=== PATIENT | female | born 1970 | race Hispanic/Latino ===

== ENCOUNTER 2017-04-07 17:40 | Observation (INO) | payer BC ==
[2017-04-07 18:12] LABS: Hemoglobin 9.3 g/dL (12.0-16.0); Mean Corpuscular HGB CONC 30.4 g/dL (32.0-36.0); Mean Corpuscular Hemoglobin 19.7 pg (27.0-31.0); Mean Corpuscular Volume 64.6 fl (81.0-99.0); Mean Platelet Volume 8.5 fL (7.4-10.4); Platelet Count 206 thou/uL (130-400); RBC Distribution Width 17.1 % (11.5-14.5); Red Blood Cell (RBC) Count 4.71 mill/uL (4.20-5.40); White Blood Cell (WBC) Count 8.5 thou/uL (4.8-10.8)
[2017-04-07 18:31] LABS: #Eosinphils 0.1 thou/uL (0.0-0.7); #Lymphocytes 2.1 thou/uL (1.20-3.40); #Monocytes 0.6 thou/uL (0.11-0.59); #Neutrophils 5.7 thou/uL (1.40-6.50); %Basophils 0.5 % (0.0-1.0); %Eosinophils 1.2 % (0.0-10.0); %Lymphocytes 24.4 % (21.0-51.0); %Neutrophils 66.9 % (42.0-75.0); MDiff Complete? YES; Microcytosis MODERATE=15-30 cells (100X) (0-5/hpf); Ovalocytes SLIGHT = 2-5 cells (100X) (0-1/hpf); PLT Morphology Comment Appears Adequate; Reflex for Review?? YES
[2017-04-07 18:33] LABS: ALT (SGPT) 17 U/L (8-55); AST (SGOT) 14 U/L (5-34); Albumin 4.2 g/dL (3.5-5.0); Alkaline Phosphatase 121 U/L (40-150); Anion Gap 11 mmol/L (10-20); BUN (Urea Nitrogen) 11 mg/dL (7.0-18.7); Bilirubin, Total 0.3 mg/dL (0.2-1.2); Calc. Creatinine Clearance 0 mL/min (70-130); Calcium 8.6 mg/dL (7.8-10.44); Carbon Dioxide 25 mmol/L (22-29); Chloride 106 mmol/L (98-107); Estimated GFR-MDRD Greater than 90; Globulin 3.4 g/dL (2.4-3.5); Glucose 110 mg/dL (70-105); Potassium 3.7 mmol/L (3.5-5.1); Protein, Total 7.6 g/dL (6.0-8.3); Sodium 138 mmol/L (136-145)
[2017-04-07 18:39] LABS: CKMB 2.2 ng/mL (0-6.6); Troponin I Less than 0.010 ng/mL (< 0.028)
--- NOTE | 2017-04-07 19:09 | RAD ---
CHEST PA AND LATERAL: 04/07/17 HISTORY: 46-year-old female with cough and chest pain with inspiration with some left sided numbness and tingl ing. FINDINGS: Heart size is normal. The lungs are clear. IMPRESSION: No acute intrathoracic disease. No evidence for pneumonia. POS: [facility]
--- NOTE | 2017-04-07 20:17 | CT ---
HEAD CT WITHOUT CONTRAST 04/07/17 COMPARISON: None. HISTORY: Left sided facial numbness, extremity numbness. TECHNIQUE: Serial axial CT imaging obtained at 5 mm intervals from vertex through skull base. FINDINGS: The imaged paranasal sinuses and mastoid air cells are well aerated. No displaced calvarial fracture is seen. No intracranial hemorrhage, midline shift, mass effect or ventricular enlargement. IMPRESSION: No acute findings. POS: [facility]
[2017-04-07 21:34] LABS: Troponin I 0.011 ng/mL (< 0.028)
[2017-04-07 22:03] VITALS: BMI 32.7
[2017-04-07] MEDS ORDERED: Ondansetron HCl/PF 4 MG/2 ML Vial IVP PRN (22:15)
[2017-04-07] MEDS ORDERED: Acetaminophen 325 MG TAB PO PRN ×2 (22:15→23:08)
[2017-04-07] MEDS ORDERED: Ondansetron ODT 4 MG TAB SL PRN (22:15)
[2017-04-07] MEDS ORDERED: Ondansetron ODT 4 MG TAB PO PRN (23:08)
[2017-04-07] MEDS ORDERED: Cyclobenzaprine 10 MG TAB PO PRN (23:08)
[2017-04-07 23:29] LABS: Hemoglobin A1c 5.2 % (4.0-6.0)
[2017-04-07 23:31] LABS: Magnesium 2.1 mg/dL (1.6-2.6); Phosphorus 3.6 mg/dL (2.3-4.7)
[2017-04-07 23:46] LABS: Ferritin 2.22 ng/mL (10-291); Thyroid Stimulating Hormone 0.9265 uIU/mL (0.35-4.94)
[2017-04-08 01:05] LABS: Troponin I Less than 0.010 ng/mL (< 0.028)
--- NOTE | 2017-04-08 02:44 | HP-2 ---
CODE STATUS: FULL. PRIMARY CARE PHYSICIAN: Parish quiles. ATTENDING PHYSICIAN: Dr. Sheri Davies. RESIDENT: Dr. Dontrell Parr. CHIEF COMPLAINT: Left-sided weakness. HISTORY OF PRESENT ILLNESS: This is a 46-year-old female that presents with a 1 -day history of chest pain and left-sided numbness that started last night at work. She works at a [employer]. The pain has been constant and has not improved. She also states that she had some nausea and feeling like she was going to fall. She also states she has had a headache. She does not admit to any medication use, but her daughter does state she is very anxious and does not see a doctor regularly. She states she takes many diet pills and has a lot of energy drinks on a daily basis. No other complaints at this time. In the ER , she was given aspirin 324 mg. PAST MEDICAL HISTORY: Significant for anxiety and depression. PAST SURGICAL HISTORY: C-sections x2, appendectomy. ALLERGIES: No known drug allergies. MEDICATIONS: None. FAMILY HISTORY: Noncontributory. SOCIAL HISTORY: No tobacco, alcohol, or drug use. REVIEW OF SYSTEMS: General: Denies fevers, chills, weight changes, night sweats, fatigue. Eyes: Denies vision changes or eye pain. ENT: Denies nasal congestion, rhinorrhea, or sore throat. Respiratory: No cough, congestion, shortness of breath. Cardiovascular: No chest pain, palpitations, or edema. GI: She does admit to nausea. She denies any vomiting, diarrhea, or constipation. Genitourinary: Denies incontinence or dysuria. She does state that she has had some dysfunctional uterine bleeding. Skin: No rashes or lesions. Musculoskeletal: No pain, tenderness, stiffness, swelling, arthritis at any joints. Neurologic: No weakness. She does have numbness, dizziness, headaches, and some paresthesias. Psychiatric: She admits to anxiety. No depression. PHYSICAL EXAMINATION: VITAL SIGNS: Blood pressure is 102/59, pulse 72, respiration rate 16, temperature max 98.4, pulse ox 100% on room air, current weight is 75 kilos. GENERAL: Alert and oriented x4, appropriate, interactive. EYES: PERRLA. Conjunctivae within normal limits. ENT: Tympanic membranes pearly zepeda without bulging or erythema. Nose: Mucosa and oropharynx within normal limits. NECK: Supple, no lymphadenopathy, no thyromegaly. CARDIOVASCULAR: Regular rate and rhythm. No murmurs. Radial and pedal pulses equal bilaterally. RESPIRATORY: Normal effort, no retractions, clear lungs to auscultation bilaterally. SKIN: Warm and dry. ABDOMEN: Soft, nontender to palpation. Bowel sounds present x4. No mass or distention. We did have a rectal exam, some external hemorrhoids are noted. A tight rectal tone with a guaiac pending. No masses or strictures were felt. EXTREMITIES: No clubbing, cyanosis, or edema. MUSCULOSKELETAL: Structure and tone, muscle strength, range of motion within normal limits. NEUROLOGIC: No focal neurologic deficits. Sensation within normal limits. Cranial nerves II-XII grossly intact. GCS was 15. Psychiatric: Appropriate. LABORATORY DATA: We have white blood cell count 8.5, platelet count 206, hemoglobin 9.3, hematocrit 30.4, MCV was 64.6. Sodium 138, potassium 3.7, chloride 106, bicarbonate 25, BUN 11, creatinine 0.67, glucose 110. CK-MB 2.2. Troponin I was less than 0.01. Calcium 8.6. Total protein 7.6, albumin 4.2, total bilirubin 0.3, AST was 14, ALT was 17, alkaline phosphatase 121. Chest x- ray showed nothing acute. IMAGING: CT of the head showed nothing acute. ASSESSMENT AND PLAN: A 46-year-old female with: 1. Left-sided paresthesias. We will rule out CVA. We will check magnesium and phos. Continue with neuro checks and TSH. We will hold on MRI for now as risk factors are incompletely worked up. Fasting lipid panel and A1c will calculate her ASCVD risk in the morning after a fasting lipid panel results are known. Again, we have a low index of suspicion that this has anything to do with a neurologic cause other than anxiety. 2. Tension headache. We will give her Flexeril, Tylenol. 3. Anxiety. We will consider starting Lexapro as an inpatient, but more likely she will need long-term follow up as an outpatient going forward. 4. Microcytic anemia with guaiac pending. Renal recommend outpatient follow up for this as well, but we are going to get some iron studies to see if we can get to the bottom of her anemia. Disposition and length of hospital stay to be stroke and one. Symptomatic medications will be provided. History and physical exam as well as management has been discussed with Dr. Davies. DELFINO
[2017-04-08 05:43] LABS: #Eosinphils 0.1 thou/uL (0.0-0.7); #Monocytes 0.6 thou/uL (0.11-0.59); #Neutrophils 4.5 thou/uL (1.40-6.50); %Basophils 0.4 % (0.0-1.0); %Eosinophils 1.4 % (0.0-10.0); %Lymphocytes 27.8 % (21.0-51.0); %Monocytes 8.3 % (0.0-10.0); %Neutrophils 62.1 % (42.0-75.0); Hemoglobin 8.5 g/dL (12.0-16.0); Mean Corpuscular Hemoglobin 19.6 pg (27.0-31.0); Mean Corpuscular Volume 65.5 fl (81.0-99.0); Mean Platelet Volume 8.6 fL (7.4-10.4); Platelet Count 186 thou/uL (130-400); RBC Distribution Width 17.1 % (11.5-14.5); Red Blood Cell (RBC) Count 4.33 mill/uL (4.20-5.40); White Blood Cell (WBC) Count 7.3 thou/uL (4.8-10.8)
[2017-04-08 05:47] LABS: Anion Gap 12 mmol/L (10-20); BUN (Urea Nitrogen) 11 mg/dL (7.0-18.7); Calc. Creatinine Clearance 145 mL/min (70-130); Calcium 8.6 mg/dL (7.8-10.44); Carbon Dioxide 22 mmol/L (22-29); Cardiac Risk 3.8 (Less than 4.5); Chloride 108 mmol/L (98-107); Cholesterol 123 mg/dl (< 200 Desired); Estimated GFR-MDRD Greater than 90; Glucose 122 mg/dL (70-105); HDL Cholesterol 32 mg/dL (>60 Neg Risk); LDL Cholesterol, Calculated 64 mg/dL; Potassium 3.6 mmol/L (3.5-5.1); Sodium 138 mmol/L (136-145); Triglycerides 136 mg/dL (Less than 150)
[2017-04-08] MEDS ORDERED: Ferrous Sulfate 325 MG TAB PO SCH (08:00)
--- NOTE | 2017-04-08 08:19 | PDOC.FM ---
- Subjective Subjective: Patient reports that she does not have the parasthesias anymore, but that they come and go on the right arm and right side of her face. She still has some chest pain on the left side of her chest that hurts worse when she takes a deep breath. She denies any SOB, weakness, blurry vision, headaches, numbness. - Objective MAR Reviewed: Yes Vital Signs & Weight: Vital Signs (12 hours) Temp Pulse Resp BP Pulse Ox 04/08/17 08:00 98.8 F 68 20 108/67 95 04/08/17 03:53 98.4 F 70 16 96/61 99 04/07/17 23:24 98.5 F 71 18 99/60 98 04/07/17 21:50 98.5 F 73 16 04/07/17 21:45 98.5 F 73 16 112/75 100 I&O: 04/07/17 04/08/17 04/09/17 06:59 06:59 06:59 Intake Total 450 Balance 450 Result Diagrams: 04/08/17 04:58 04/08/17 04:58 <Tasneem De Guzman - Last Filed: 04/08/17 08:17> - Objective Vital Signs & Weight: Vital Signs (12 hours) Temp Pulse Resp BP Pulse Ox 04/08/17 08:00 98.8 F 68 20 108/67 95 04/08/17 03:53 98.4 F 70 16 96/61 99 04/07/17 23:24 98.5 F 71 18 99/60 98 I&O: 04/07/17 04/08/17 04/09/17 06:59 06:59 06:59 Intake Total 450 Balance 450 Result Diagrams: 04/08/17 04:58 04/08/17 04:58 <Quang Laboy - Last Filed: 04/08/17 11:01> Phys Exam - Physical Examination Constitutional: NAD HEENT: PERRLA, moist MMs Respiratory: no wheezing, no rales, no rhonchi, clear to auscultation bilateral Cardiovascular: RRR, no significant murmur, no rub chest pain reproducible with palpation Gastrointestinal: soft, non-tender, no distention, positive bowel sounds Musculoskeletal: no edema, pulses present Neurological: non-focal, moves all 4 limbs CN II-XII intact, abnormal sensation in L upper extremity 5/5 muscle strength bilaterally Psychiatric: normal affect, A&O x 3 <Tasneem De Guzman - Last Filed: 04/08/17 08:17> Dx/Plan (1) Paresthesia of arm Code(s): R20.2 - PARESTHESIA OF SKIN Status: Acute (2) Anxiety Code(s): F41.9 - ANXIETY DISORDER, UNSPECIFIED Status: Acute (3) Iron deficiency anemia Code(s): D50.9 - IRON DEFICIENCY ANEMIA, UNSPECIFIED Status: Acute QualifierTitle: Iron deficiency anemia type: chronic blood loss Qualified Code(s): D50.0 - Iron deficiency anemia secondary to blood loss ( chronic) - Plan Plan: 1) L Upper Extremity Paresthesias Patient had negative Spurling's test. No weakness or true numbness in that side and her symptoms come and go. ASCVD 10 year risk 0.6% Unlikely that this is related to a CVA. Could be positional vs migraine vs tension headache -Flexeril, Aspirin -recommend outpatient follow-up, will set her up with our clinic 2) Costochondritis Chest pain reproducible on palpation ASCVD 10 year risk 0.6% -Tylenol 3) Iron Deficiency Anemia This is likely 2/2 dysfunctional uterine bleeding, will need outpatient f/u to determine cause for sure. FOBT was negative, but with her age may benefit from outpatient colonoscopy. -Ferrous Sulfate BID 4) Anxiety Patient has significant anxiety and does not have a PCP currently. Will set her up to follow-up in our clinic for this -Will start on lexapro until she follows up in clinic <Tasneem De Guzman - Last Filed: 04/08/17 08:17> Attending Addendum - Attending Addendum I personally evaluated the patient and discussed the management with Dr. De Guzman. I agree with the History, Examination, Assessment and Plan documented above with any addition or exceptions noted below. Patient feeling well. She has muscle soreness, and no focal deficits. No evidence of CVA and her ASCVD score is incredibly low. She has significant iron deficiency anemia that could also be causing some of her symptoms. Will give iron infusion today and likely discharge afterwards with follow up in our clinic for further management of her chronic problems. <Quang Laboy - Last Filed: 04/08/17 11:01>
[2017-04-08] MEDS ORDERED: Docusate 100 MG CAP PO SCH (09:00)
[2017-04-08] MEDS ORDERED: Famotidine 20 MG TAB PO SCH (09:00)
[2017-04-08] MEDS ORDERED: Escitalopram Oxalate 10 mg Tablet PO SCH (09:00)
[2017-04-08] MEDS ORDERED: IRON SUCROSE COMPLEX IVPB SCH (10:45)
[2017-04-08] MEDS ORDERED: SODIUM CHLORIDE IVPB SCH (10:45)
[2017-04-08] MEDS ORDERED: ADMIXTURE FEE IVPB SCH (10:45)
[2017-04-08] MEDS ORDERED: Sodium Ferric Gluconate 250 MG in Sodium Chloride 0.9% 100 ML IVPB SCH (11:00)
[2017-04-08 12:10] VITALS: BP 108/68; TEMP 98.5
--- NOTE | 2017-04-08 21:58 | DIS-2 ---
DATE OF ADMISSION: 04/07/2017 DATE OF DISCHARGE: 04/08/2017 ADMITTING RESIDENT: Dontrell Parr MD DISCHARGE RESIDENT: Tasneem De Guzman MD ADMITTING ATTENDING: Sheri Davies M.D. DISCHARGE ATTENDING: Quang Laboy MD CONSULTATIONS: None. PROCEDURES: None. IMAGIN. Chest x-ray showed no acute intrathoracic disease. No evidence for pneumonia. 2. Brain CT showed no acute findings. PRIMARY DIAGNOSES: 1. Left upper extremity paresthesias. 2. Costochondritis. 3. Iron deficiency anemia. 4. Anxiety. DISCHARGE MEDICATIONS: 1. Flexeril 10 mg p.o. t.i.d. p.r.n. muscle spasms. 2. Lexapro 10 mg p.o. daily. 3. Ferrous sulfate 325 mg p.o. b.i.d. with meals. DISCONTINUED MEDICATIONS: None. HISTORY OF PRESENT ILLNESS AND HOSPITAL COURSE: This is a 46-year-old female, who presented to the [facility] with left upper extremity paresthesias as well as a tension headache and chest pain that was found to be costochondritis. The patient was found to be severely iron deficient and anemic, and was sympt omatic from this, could be potentially cause of her paresthesias. The patient's hemoglobin was 8.5, hematocrit 28.4, and her iron was 10, TIBC 538, and ferritin 2.22. The patient had normal calcium an d TSH. The patient reported a history of dysfunctional uterine bleeding as well as a low iron diet. The patient was treated with Flexeril and ferrous sulfate as well as given an iron infusion and the patient's ASCVD risk was stratified and she was found to have a 10 year risk of 0.6%, and so it is un likely that she was having any sort of cerebrovascular accident. The patient does not currently have a PCP and so she was given information to follow up with [facility]. The patient was also found to have significant anxiety and due to her current anxiety level and not being on any medi cation, she was started on Lexapro and given strict instructions to follow up with [facility] within 1-2 weeks. The patient reported that she would be willing to do this. DISPOSITION: Stable. DISCHARGE INSTRUCTIONS: 1. Location: Home. 2. Diet: Heart healthy. 3. Activity: As tolerated. 4. Followup: With [facility] within 1-2 weeks when she was established with [facility].
== END 2017-04-08 15:56 | disposition home or self-care (01) ==
LOC: ERS 17:40 → INTOOBSV 20:36 → 2SE 20:36
PROVIDERS: ADMIT Family Medicine; ATTEND Family Medicine
DX: R20.2 Paresthesia of skin (principal); M94.0 Chondrocostal junction syndrome [Tietze]; D50.9 Iron deficiency anemia, unspecified; F41.9 Anxiety disorder, unspecified; F32.9 Major depressive disorder, single episode, unspecified; G44.209 Tension-type headache, unspecified, not intractable; Z90.49 Acquired absence of other specified parts of digestive tract
CPT/HCPCS: 36415; 70450; 71046; 80048; 80053; 80061; 82274; 82553; 82728; 83036; 83540; 83550; 83735; 84100; 84443; 84484; 85025; 85060; 93005; 96365; 96366; G0378; J1756; J2916; J7050